=== PATIENT | female | born 1930 | race Caucasian/White ===

== ENCOUNTER → 2016-10-12 | Outpatient (CLI) | payer MEDICARE ==
--- NOTE | 2016-10-12 15:16 | PE ---
EXAMINATION TYPE: PET CT fusion whole body DATE OF EXAM: 10/12/2016 CLINICAL HISTORY: Solitary pulmonary nodule per order. Recent abnormal chest CT. TECHNIQUE: Following the intravenous administration of 14.436 mCi of F-18 FDG, whole body images ar e performed from the skull base to the midthigh. Images are reviewed on the computer in the coronal, axial, and sagittal planes. Reconstructed rotating images are created on independent workstation an d reviewed on the computer. A non-contrast CT is performed in conjunction with the PET scan. COMPARISON: Prior PET/CT September 16, 2015. Outside chest CT September 27, 2016 at [facility] reviewed on outside PACS station. FINDINGS: SKULL BASE AND NECK: No suspicious hypermetabolic uptake in the neck is identified. CHEST, MEDIASTINUM, AND HILAR REGION: There is redemonstration of moderate emphysematous change with mild apical scarring bilaterally. There is redemonstration of 1.2 x 1.1 cm spiculated nodule lateral right upper lung without abnormal hypermetabolic uptake not significantly changed from prior exams. T he superior posterior aspect left lower lobe there is new 8 x 8 mm nodule that appears to have some c alcification anteriorly does not show suspicious abnormal hypermetabolic uptake correlates with recen t CT. A 4 mm nodule right midlung anteriorly on axial image 97 is not significantly changed from prio r studies. No areas of abnormal hypermetabolic uptake in the thorax are clearly seen. ABDOMEN AND PELVIS: No suspicious hypermetabolic uptake is seen in the abdomen or pelvis. Normal excr etion is noted. OSSEOUS STRUCTURES: No suspicious hypermetabolic uptake is seen in osseous structures. OTHER CT: There is persisting cardiomegaly with dual lead pacemaker. Gallbladder has distended margins. Small hiatal hernia is present. Extra renal pelvis left kidney is noted. There is prominent sigmoid colonic diverticulosis without CT evidence for acute diverticulitis. There is moderate calcified plaque in the descending aorta extending into pelvic branch vessels. There is persistent metallic hardware from right hip surgery redemonstrated. There is facet arthropat hy lower lumbar levels. There is multilevel spurring in the spine. IMPRESSION: No suspicious hypermetabolic uptake is seen to suggest malignancy. The 1.2 cm spiculated nodule lateral right upper lung is not significantly changed from prior PET/CT favored postinflammato ry. Of slightly more concern is smaller nonhypermetabolic 8 mm nodule superior left lower lung since it is new from prior PET/CT. Does appear to have some calcification anteriorly. Appropriate CT follow is advised as per high risk patient utilizing modified Fleischner Society recommendations.
== END | disposition home or self-care (01) ==
LOC: RADPETMAIN 12:17
PROVIDERS: ATTEND Internal Medicine Critical Care Medicine
DX: R91.1 Solitary pulmonary nodule (principal)
CPT/HCPCS: 78816; A9552

== ENCOUNTER → 2016-12-09 | Outpatient (CLI) | payer MEDICARE ==
--- NOTE | 2016-12-11 10:55 | MM ---
Reason for exam: screening (asymptomatic). History: Patient is postmenopausal. Physical Findings: A clinical breast exam by your physician is recommended on an annual basis and results should be correlated with mammographic findings. MG 3D Screening Mammo W/Cad Bilateral CC and MLO view(s) were taken. No prior studies available for comparison. There are scattered fibroglandular densities. Finding: There are typically benign calcifications in both breasts. There is no dominant lesion. There is no discrete abnormality. ASSESSMENT: Benign, BI-RAD 2 RECOMMENDATION: Routine screening mammogram of both breasts in 1 year.
== END | disposition home or self-care (01) ==
LOC: RADMAMWWP 15:03
PROVIDERS: ATTEND Family Medicine
DX: Z12.31 Encounter for screening mammogram for malignant neoplasm of breast (principal)
CPT/HCPCS: 77063; G0202

== ENCOUNTER 2017-07-13 20:09 | Emergency (ER) | payer MEDICARE ==
[2017-07-13] MEDS ORDERED: ASPIRIN 81 MG PO STA (20:14)
[2017-07-13] MEDS ORDERED: NITROGLYCERIN OINT 1 INCH/GM PACKET TOPICAL STA (20:14)
--- NOTE | 2017-07-13 20:20 | ED ---
General Adult HPI - General Source: RN notes reviewed <Moe Miles - Last Filed: 07/13/17 21:10> <Moe Garzon - Last Filed: 07/13/17 22:49> - General Stated complaint: CHEST PAIN Time Seen by Provider: 07/13/17 20:10 - History of Present Illness Initial comments: This is an 87-year-old female presents emergency room complaining of epigastric abdominal pain started 3:00. Patient states she was also short of breath since then. Patient states she had no chest pain but EMS reported they thought they might have seen some ST segment elevation or could've been the pacemaker fire. Patient did receive one nitroglycerin. Patient states her pain is much better but she still feels somewhat short of breath. Patient denies any recent fever chills or cough. Patient denies any vomiting or diarrhea. Patient denies headache patient denies numbness weakness. Patient denies lightheadedness or dizziness. Patient has a history of atrial fibrillation (Moe Miles) - Related Data Home Medications Medication Instructions Recorded Confirmed Calcium Carbonate [Calcium] 600 mg PO DAILY 11/23/15 07/13/17 Cholecalciferol [Vitamin D3] 2,000 unit PO DAILY 11/23/15 07/13/17 Glucosam/Nestor-Msm1/C/Bonilla/Bosw 1 tab PO BID 11/23/15 07/13/17 [Glucosamine-Chondroitin Tablet] Metolazone [Zaroxolyn] 2.5 mg PO Q48H PRN 11/23/15 07/13/17 Warfarin [Coumadin] 2.5 mg PO SUMOWETHFRSA 11/23/15 07/13/17 Warfarin [Coumadin] 5 mg PO TU 11/23/15 07/13/17 Albuterol Inhaler [Ventolin Hfa 1 - 2 puff INHALATION RT-Q6H PRN 07/13/17 Inhaler] Furosemide [Lasix] 20 mg PO BID 07/13/17 07/13/17 Levothyroxine Sodium [Synthroid] 50 mcg PO DAILY 07/13/17 07/13/17 Magnesium 200 mg PO DAILY 07/13/17 07/13/17 Potassium Chloride ER [K-Dur 20] 40 meq PO BID 07/13/17 07/13/17 Tiotropium Br/Olodaterol HCl 1 puff INHALATION RT-DAILY PRN 07/13/17 07/13/17 [Stiolto Respimat Inhal [place]] Allergies Allergy/AdvReac Type Severity Reaction Status Date / Time Beta-Blockers Allergy Dyspnea Verified 07/13/17 20:51 (Beta-Adrenergic Bloc codeine Allergy Nausea & Verified 07/13/17 20:51 Vomiting flecainide acetate Allergy Dyspnea Verified 07/13/17 20:51 [From Tambocor] morphine Allergy Nausea & Verified 07/13/17 20:51 Vomiting Review of Systems ROS Other: All systems not noted in ROS Statement are negative. <Moe Miles - Last Filed: 07/13/17 21:10> ROS Other: All systems not noted in ROS Statement are negative. <Moe Garzon - Last Filed: 07/13/17 22:49> ROS Statement: Those systems with pertinent positive or pertinent negative responses have been documented in the HPI. General Exam <Moe Miles - Last Filed: 07/13/17 21:10> <Moe Garzon - Last Filed: 07/13/17 22:49> - General Exam Comments Initial Comments: GENERAL: Patient is well-developed and well-nourished. Patient is nontoxic and well- hydrated and is in mild distress. ENT: Neck is soft and supple. No significant lymphadenopathy is noted. Oropharynx is clear. Moist mucous membranes. Neck has full range of motion without eliciting any pain. EYES: The sclera were anicteric and conjunctiva were pink and moist. Extraocular movements were intact and pupils were equal round and reactive to light. Eyelids were unremarkable. PULMONARY: Patient has diminished breath sounds bilaterally and some crackles in the left base CARDIOVASCULAR: There is a regular rate and rhythm without any murmurs gallops or rubs. ABDOMEN: Soft and nontender with normal bowel sounds. No palpable organomegaly was noted. There is no palpable pulsatile mass. SKIN: Skin is clear with no lesions or rashes and otherwise unremarkable. NEUROLOGIC: Patient is alert and oriented x3. Cranial nerves II through XII are grossly intact. Motor and sensory are also intact. Normal speech, volume and content. Symmetrical smile. MUSCULOSKELETAL: Normal extremities with adequate strength and full range of motion. No lower extremity swelling or edema. No calf tenderness. LYMPHATICS: No significant lymphadenopathy is noted PSYCHIATRIC: Normal psychiatric evaluation. Normal interpersonal interactions appears functionally intact in deals appropriately with others. No signs of depression. No signs of anxiety. (Moe Miles) Course <Moe Miles - Last Filed: 07/13/17 21:10> <Moe Garzon - Last Filed: 07/13/17 22:49> Vital Signs 07/13/17 07/13/17 07/13/17 20:15 21:07 21:19 Temperature 97.7 F Pulse Rate 68 56 L 56 L Respiratory 26 H Rate Blood Pressure 122/78 O2 Sat by Pulse 94 L Oximetry 07/13/17 21:31 Temperature Pulse Rate 63 Respiratory 22 Rate Blood Pressure 116/53 O2 Sat by Pulse 93 L Oximetry - Reevaluation(s) Reevaluation #1: 07/13/17 22:49 Patient's patient seen and examined, patient's feeling better, awake and alert speaking appropriately. Patient states he feels good to go home. Pain is resolved with no treatment. Shortness of breath is feeling improved back to baseline (Moe Garzon) Medical Decision Making - Lab Data Result diagrams: 07/13/17 20:22 07/13/17 20:22 <Moe Miles - Last Filed: 07/13/17 21:10> - Lab Data Result diagrams: 07/13/17 20:22 07/13/17 20:22 - Radiology Data Radiology results: report reviewed (Chest x-rays negative for acute disease), image reviewed <Moe Garzon - Last Filed: 07/13/17 22:49> - Medical Decision Making EKG shows a rhythm that is flipping between a narrow complex and a wide complex no P waves can be consistently discerned and it is at a rate of 64 bpm QRS is 68 QT interval 432 QTC is 445 patient's EKG is of poor quality Dr. Garzon will be taking over care of this patient at 9 PM (Moe Miles) 79 female the ER for evaluation regards to significant abdominal pain which related to significant shortness of breath. Patient states his return to baseline at this time. Last stay in hospital patient refuses, states she wants to go home. Patient can be discharged home (Moe Garzon) - Lab Data Lab Results 07/13/17 07/13/17 07/13/17 Range/Units 20:18 20:22 20:22 WBC 7.9 (3.8-10.6) k/uL RBC 3.73 L (3.80-5.40) m/uL Hgb 12.1 (11.4-16.0) gm/dL Hct 36.3 (34.0-46.0) % MCV 97.4 (80.0-100.0) fL MCH 32.5 (25.0-35.0) pg MCHC 33.4 (31.0-37.0) g/dL RDW 14.8 (11.5-15.5) % Plt Count 249 (150-450) k/uL Neutrophils % 75 % Lymphocytes % 14 % Monocytes % 8 % Eosinophils % 1 % Basophils % 1 % Neutrophils # 5.9 (1.3-7.7) k/uL Lymphocytes # 1.1 (1.0-4.8) k/uL Monocytes # 0.6 (0-1.0) k/uL Eosinophils # 0.1 (0-0.7) k/uL Basophils # 0.1 (0-0.2) k/uL PT (9.0-12.0) sec INR (<1.2) APTT (22.0-30.0) sec Sodium (137-145) mmol/L Potassium (3.5-5.1) mmol/L Chloride (98-107) mmol/L Carbon Dioxide (22-30) mmol/L Anion Gap mmol/L BUN (7-17) mg/dL Creatinine (0.52-1.04) mg/dL Est GFR (CKD-EPI)AfAm (>60 ml/min/1.73 sqM) Est GFR (CKD-EPI)NonAf (>60 ml/min/1.73 sqM) Glucose (74-99) mg/dL POC Glucose (mg/dL) 103 H (75-99) mg/dL POC Glu Firmware Developer ID Mallory Do Calcium (8.4-10.2) mg/dL Magnesium (1.6-2.3) mg/dL Total Bilirubin (0.2-1.3) mg/dL AST (14-36) U/L ALT (9-52) U/L Alkaline Phosphatase (38-126) U/L Total Creatine Kinase 39 (30-135) U/L CK-MB (CK-2) 1.3 (0.0-2.4) ng/mL CK-MB (CK-2) Rel Index 3.3 Troponin I <0.012 (0.000-0.034) ng/mL Total Protein (6.3-8.2) g/dL Albumin (3.5-5.0) g/dL Amylase (30-110) U/L Lipase (23-300) U/L 07/13/17 07/13/17 Range/Units 20:22 20:22 WBC (3.8-10.6) k/uL RBC (3.80-5.40) m/uL Hgb (11.4-16.0) gm/dL Hct (34.0-46.0) % MCV (80.0-100.0) fL MCH (25.0-35.0) pg MCHC (31.0-37.0) g/dL RDW (11.5-15.5) % Plt Count (150-450) k/uL Neutrophils % % Lymphocytes % % Monocytes % % Eosinophils % % Basophils % % Neutrophils # (1.3-7.7) k/uL Lymphocytes # (1.0-4.8) k/uL Monocytes # (0-1.0) k/uL Eosinophils # (0-0.7) k/uL Basophils # (0-0.2) k/uL PT 24.1 H (9.0-12.0) sec INR 2.7 H (<1.2) APTT 25.3 (22.0-30.0) sec Sodium 139 (137-145) mmol/L Potassium 4.7 (3.5-5.1) mmol/L Chloride 102 (98-107) mmol/L Carbon Dioxide 31 H (22-30) mmol/L Anion Gap 6 mmol/L BUN 30 H (7-17) mg/dL Creatinine 0.90 (0.52-1.04) mg/dL Est GFR (CKD-EPI)AfAm 66 (>60 ml/min/1.73 sqM) Est GFR (CKD-EPI)NonAf 58 (>60 ml/min/1.73 sqM) Glucose 93 (74-99) mg/dL POC Glucose (mg/dL) (75-99) mg/dL POC Glu Firmware Developer ID Calcium 9.2 (8.4-10.2) mg/dL Magnesium 2.3 (1.6-2.3) mg/dL Total Bilirubin 0.5 (0.2-1.3) mg/dL AST 19 (14-36) U/L ALT 18 (9-52) U/L Alkaline Phosphatase 58 (38-126) U/L Total Creatine Kinase (30-135) U/L CK-MB (CK-2) (0.0-2.4) ng/mL CK-MB (CK-2) Rel Index Troponin I (0.000-0.034) ng/mL Total Protein 5.7 L (6.3-8.2) g/dL Albumin 3.2 L (3.5-5.0) g/dL Amylase 55 (30-110) U/L Lipase 104 (23-300) U/L Disposition <Moe Miles - Last Filed: 07/13/17 21:10> <Moe Garzon - Last Filed: 07/13/17 22:49> Clinical Impression: Congestive heart failure, Biliary colic Disposition: HOME SELF-CARE Condition: Good Referrals: Gideon Alva DO [Doctor of Osteopathic Medicine] - 1-2 days
[2017-07-13 20:23] LABS: Glucose,Whole Blood 103 mg/dL (75-99)
[2017-07-13 20:32] LABS: Basophils # (A) 0.1 k/uL (0-0.2); Basophils % (A) 1 %; Eosinophils # (A) 0.1 k/uL (0-0.7); Eosinophils % (A) 1 %; HCT 36.3 % (34.0-46.0); HGB 12.1 gm/dL (11.4-16.0); Lymphocytes # (A) 1.1 k/uL (1.0-4.8); Lymphocytes % (A) 14 %; MCH 32.5 pg (25.0-35.0); MCHC 33.4 g/dL (31.0-37.0); MCV 97.4 fL (80.0-100.0); Mean Platelet Volume 7.3; Monocytes # (A) 0.6 k/uL (0-1.0); Monocytes % (A) 8 %; Neutrophils # (A) 5.9 k/uL (1.3-7.7); Neutrophils % (A) 75 %; Platelet Count 249 k/uL (150-450); RBC 3.73 m/uL (3.80-5.40); RDW 14.8 % (11.5-15.5); WBC 7.9 k/uL (3.8-10.6)
[2017-07-13] MEDS ORDERED: IPRATROPIUM-ALBUTEROL 3 ML NEB INHALATION STA (20:36)
[2017-07-13 20:41] LABS: INR 2.7 (<1.2); Partial Thromboplastin Time 25.3 sec (22.0-30.0); Prothrombin Time 24.1 sec (9.0-12.0)
[2017-07-13 20:42] LABS: Albumin 3.2 g/dL (3.5-5.0); Calcium 9.2 mg/dL (8.4-10.2); Magnesium 2.3 mg/dL (1.6-2.3); Potassium 4.7 mmol/L (3.5-5.1); Total Bilirubin 0.5 mg/dL (0.2-1.3); Total Protein 5.7 g/dL (6.3-8.2)
[2017-07-13 20:44] LABS: Creatine Kinase 39 U/L (30-135)
[2017-07-13 20:57] LABS: Creatine Kinase MB 1.3 ng/mL (0.0-2.4); Troponin I <0.012 ng/mL (0.000-0.034)
--- NOTE | 2017-07-13 21:04 | XR ---
EXAMINATION TYPE: XR chest 2V DATE OF EXAM: 07/13/2017 COMPARISON: 10/12/2016 HISTORY: Shortness of breath TECHNIQUE: Frontal and lateral views of the chest are obtained. FINDINGS: Right upper lobe spiculated pulmonary nodules not well-defined on chest radiograph and shou ld be followed with CT and/or PET. Diffuse prominence of the interstitial interstitial lung markings are noted pulmonary hyperinflation relates underlying COPD. Retrocardiac density appears to represent confluence of vasculature. Cardiac silhouette is enlarged with dual lead left-sided cardiac device. There is generalized osseous demineralization. IMPRESSION: No acute cardiopulmonary process. Pulmonary hyperinflation of COPD and cardiomegaly. The known pulmonary nodule is not seen well on chest radiograph and should be followed with CT.
[2017-07-13 21:32] VITALS: RESP 22
[2017-07-13 23:00] VITALS: BP 112/56; PULSE 64; TEMP 97.2
== END 2017-07-13 23:45 | disposition home or self-care (01) ==
LOC: EC 20:09
DX: I50.9 Heart failure, unspecified (principal); K80.50 Calculus of bile duct without cholangitis or cholecystitis without obstruction; J44.9 Chronic obstructive pulmonary disease, unspecified; Z79.01 Long term (current) use of anticoagulants; Z79.899 Other long term (current) drug therapy; Z88.5 Allergy status to narcotic agent; Z88.8 Allergy status to other drugs, medicaments and biological substances; Z95.0 Presence of cardiac pacemaker
CPT/HCPCS: 36415; 71046; 80053; 82150; 82550; 82553; 83690; 83735; 84484; 85025; 85610; 85730; 94640; 99285